=== PATIENT | male | born 1945 | race Caucasian/White ===

== ENCOUNTER → 2017-06-23 | Outpatient (CLI) | payer OTHER ==
--- NOTE | 2017-06-23 10:45 | PCVCIMAG ---
EXAM: BILATERAL CAROTID DUPLEX INDICATION: Carotid Occlusive Disease. FINDINGS: Doppler Measurements (centimeters per second): RIGHT: Peak CCA-93, Peak ECA-220, Diastolic ICA-75, Peak ICA-308, ICA/CCA Ratio-3.3. LEFT: Peak CCA-120, Peak ECA-220, Diastolic ICA-65, Peak ICA-286, ICA/CCA Ratio-2.4. RIGHT CAROTID: The carotid bulb has severe plaque. The proximal internal carotid artery shows 80-90% stenosis. The common carotid artery shows no significant stenosis. The external carotid artery shows 70% stenosis. LEFT CAROTID: The carotid bulb has moderately severe plaque. The proximal internal carotid artery shows 70-80% stenosis. The common carotid artery shows no significant stenosis. The external carotid artery shows 70% stenosis. Antegrade flow in both vertebral arteries. IMPRESSION: 80-90% stenosis of the right internal carotid artery with severe plaque. 70-80% stenosis of the left internal carotid artery with moderately severe plaque. Bilateral internal carotid artery stenoses have increased in severity since July 2016 study. LOC:[id number]
== END | disposition home or self-care (01) ==
LOC: PCVCIMAG 08:23
PROVIDERS: ATTEND Internal Medicine Cardiovascular Disease
DX: I65.23 Occlusion and stenosis of bilateral carotid arteries (principal); I25.10 Atherosclerotic heart disease of native coronary artery without angina pectoris
CPT/HCPCS: 93880

== ENCOUNTER → 2017-07-06 | Outpatient (CLI) | payer OTHER ==
[~2017-07-06] MED LIST: DIAZEPAM 10 MG TABLET. ONE; IOHEXOL 300 MG/ML 100ML VIAL. ONE; IOHEXOL 350 MG/ML 100 ML VIAL. ONE; IOHEXOL 350 MG/ML 50 ML VIAL. ONE; IV NORMAL SALINE 1000ML BAG 1,000 ML ONE; LIDOCAINE 1% Multi-Dose 20 ML VIAL. ONE; LIDOCAINE 1%/EPI 1:100,000 20 ML VIAL. ONE; MIDAZOLAM HCL/PF 2 MG/2 ML VIAL. ONE; fentaNYL PF VIAL 100 MCG/2 ML VIAL ONE
--- NOTE | 2017-07-06 16:42 | PCVCINTER ---
EXAM: 1 CERVICOCEPHALIC ARCH AORTOGRAM 2 BILATERAL CAROTID ANGIOGRAPHY 3 BILATERAL VERTEBROBASILAR ANGIOGRAPHY 4 BILATERAL RENAL ANGIOGRAPHY 5 BILATERAL ILIOFEMORAL ANGIOGRAPHY INDICATION: Carotid occlusive disease. Left subclavian steal. Hypertension. Renal atherosclerosis. Leg pain. PROCEDURE: Procedure and risks of the procedures listed above were discussed with the patient and consent obtained. Risks including but not limited to bleeding, infection, stroke, vascular injury, neurologic injury, embolization, allergic reactions, and contrast-induced nephropathy requiring dialysis were discussed as appropriate and consent obtained. Patient was placed on the angiography table. IV conscious sedation was utilized with appropriate monitoring from 12:00 PM through 1:15 PM. The right groin was prepped and draped in the normal sterile fashion. Ultrasound was used to interrogate the right groin and demonstrate the right common femoral artery. An ultrasound image was saved. Under ultrasound guidance a 21 gauge needle was used to gain access into the right common femoral artery and a 6F vascular sheath was placed. Dr. Rdz joined the procedure and he then performed coronary angiography. Please see his separate dictation for full details. I then placed a diagnostic catheter into the ascending aorta and cervicocephalic aortic arch angiogram performed. Catheter was placed into the suprarenal abdominal aorta and abdominal aortic angiogram performed. Catheter was placed into the right common carotid artery and right common carotid angiogram performed. Catheter was placed into the left common carotid artery and left common carotid angiogram performed. Catheter was placed into the left subclavian artery and left vertebro-basilar angiogram performed. Catheter was placed into the right subclavian artery and right vertebrobasilar angiogram performed. Catheter was placed into the right renal artery and right renal angiogram performed. Catheter was placed into the left renal artery and left renal angiogram performed. Catheters and wires were removed and hemostasis obtained using the FISH device. No immediate complications. FINDINGS: Cervicocephalic arch aortogram: The origins of the great vessels show satisfactory patency. Cranial directed flow in both vertebral arteries is noted. Right common carotid angiogram: This injection fills the right anterior and middle cerebral distributions which are unremarkable. The cavernous carotid artery is patent. Extensive calcific plaque from the origin of the cervical internal carotid artery to approximately the C1-C2 level of the cervical internal carotid artery results in areas of 80-90% stenosis. This plaque also causes 70% stenosis of the distal most common carotid artery. The external carotid artery is patent. Left common carotid angiogram: This injection fills the right and left anterior cerebral and the left middle cerebral distributions all of which show satisfactory patency. The cavernous carotid artery is unremarkable. Large eccentric plaque in the junction of the common carotid and internal carotid artery causes 65% stenosis at the origin of the internal carotid artery. Internal carotid artery otherwise patent. The distal common carotid artery shows nearly 50% stenosis. The external carotid artery is patent. Right vertebrobasilar angiogram: The right vertebral artery is patent as is the basilar artery and both posterior cerebral arteries. Left vertebrobasilar angiogram: 60% stenosis upper left vertebral artery. Cervical left vertebral artery is patent. The basilar artery is patent as are both posterior cerebral arteries. Right renal angiogram: Moderate plaque at the origin of the renal artery causing mild stenosis which is not flow-limiting. Left renal angiogram: Mild plaque proximal vessel does not cause significant stenosis. Bilateral iliofemoral angiogram: The infrarenal abdominal aorta shows moderate plaque without significant stenosis. The right and left common iliac arteries are patent. Both internal iliac arteries are patent. The right and left external iliac arteries are patent. The right and left common femoral and profunda femoral arteries are patent. Visualized portions of the upper superficial femoral arteries are patent bilaterally. IMPRESSION: Extensive calcific plaque throughout the proximal 4-5 cm of the right internal carotid artery extending superiorly to the C1-C2 level results in areas of 80-90% stenosis. 65% stenosis at the origin of the left internal carotid artery. 60% stenosis upper left vertebral artery. Case was reviewed with Dr. Silverio Schumacher of neurosurgery. Giving the extensive calcific plaque and the superior extent of the plaque surgical endarterectomy would be of higher risk. Since the patient is asymptomatic medical therapy including aggressive antiplatelet therapy is recommended. LOC:[id number]
--- NOTE | 2017-07-07 16:50 | PCVCINTER ---
APPROVED REPORT Patient Details Patient Status: Out-Patient Room #: 3 The patient is a 72 year-old Male Event Personnel Jessica Almeida RT(R), Michelle Graves RT(R)(), Fany Grissom RN Risk Factors Arterial HypertensionDysplipidemia (Type: 1), Peripheral Vascular Disease, Hypercholesterolemia, Diabetes (Control: Insulin)Last Creatanine 1.6Tobacco History (Former) Previous Procedures/Diagnoses Previous CABGPrevious PCI, Previous Femoral Procedure Procedure Narrative The patient was brought electively to the Cardiac Catheterization Laboratory and was prepped and draped in a sterile manner. The right femoral was infiltrated with 1% Lidocaine subcutaneous anesthesia. A 6fr sheath was inserted into the right femoral artery. Coronary angiography was performed using coronary diagnostic catheters. The right coronary system was accessed and visualized with a JR4 Diagnostic catheter. The left coronary system was accessed and visualized with a JL4 Diagnostic catheter. The left ventricle was accessed and visualized with a Pigtail Diagnostic catheter. Left ventriculogram was performed in DAIGLE projection. Closure device was deployed with a 6 Fr Fish. Hemostasis was obtained with manual pressure following sheath removal without any complications. The patient tolerated the procedure well and there were no complications associated with the procedure. There was no hematoma. Hemodynamics The aortic pressure is 132/63 mmHg with a mean of 89 mmHg. The left ventricular pressure is 122/9 mmHg with a mean of 21 mmHg. Conclusion #1 normal left ventricular size with mild anterolateral wall hypokinesis EF 50% range #2 total occlusion of left [place] system #3 NIEVES was injected and appears to be atrretic and essentially nonfunctional. #4 SVG to OM system the graft is well preserved at the distal anastomosis appears to have an 80-90% eccentric lesion filling a small moderate size OM bifurcating system which is well preserved this lesion has progressed #5 [place] right coronary artery occluded #6 there is a graft which may have been a taken down NIEVES to the LAD which is intact with a 50% anastomotic lesion filling and LAD which extends to the apex and provides some inferior wall filling #7 SVG to the distal right PDA is intact with a 40-50% distal lesion filling a diffusely disease PDA and SANDRA. Continue aggressive risk factor modification will recommend intervention to the SVG to OM system. No lifting for 48 hours no line tub Jacuzzi or Watson for a week. We'll initiate Plavix therapy in addition to aspirin currently. Arrange for intervention in the next one to 2 weeks to the SVG to OM
== END | disposition home or self-care (01) ==
LOC: PCVCINTER 09:06
PROVIDERS: ATTEND Internal Medicine Cardiovascular Disease
DX: I25.10 Atherosclerotic heart disease of native coronary artery without angina pectoris (principal); E78.00 Pure hypercholesterolemia, unspecified; E78.5 Hyperlipidemia, unspecified; I73.9 Peripheral vascular disease, unspecified; E11.9 Type 2 diabetes mellitus without complications; I65.29 Occlusion and stenosis of unspecified carotid artery; I10 Essential (primary) hypertension; I70.1 Atherosclerosis of renal artery; G45.8 Other transient cerebral ischemic attacks and related syndromes
CPT/HCPCS: 36223; 36225; 36252; 75630; 76937; 93459; 99152; 99153; C1751; C1760; C1769; C1894; J1644; J2250; J3010; J3490; J7030; Q9967; 93458

== ENCOUNTER → 2017-10-19 | Outpatient (CLI) | payer OTHER | END | disposition home or self-care (01) | LOC: PCVCIMAG 14:48 | DX: I65.23 Occlusion and stenosis of bilateral carotid arteries (principal) | CPT/HCPCS: 93880 ==

== ENCOUNTER → 2018-01-28 | Outpatient (CLI) | payer OTHER ==
[~2018-01-28] MED LIST changes: -DIAZEPAM 10 MG TABLET. ONE; -IOHEXOL 300 MG/ML 100ML VIAL. ONE; -IOHEXOL 350 MG/ML 100 ML VIAL. ONE; -IOHEXOL 350 MG/ML 50 ML VIAL. ONE; -IV NORMAL SALINE 1000ML BAG 1,000 ML ONE; -LIDOCAINE 1% Multi-Dose 20 ML VIAL. ONE; -LIDOCAINE 1%/EPI 1:100,000 20 ML VIAL. ONE; -MIDAZOLAM HCL/PF 2 MG/2 ML VIAL. ONE; +REGADENOSON 0.4 MG/5 ML DISP.SYRIN. IV; -fentaNYL PF VIAL 100 MCG/2 ML VIAL ONE
== END | disposition home or self-care (01) ==
LOC: PCVCIMAG 10:18
DX: I25.10 Atherosclerotic heart disease of native coronary artery without angina pectoris (principal); I12.9 Hypertensive chronic kidney disease with stage 1 through stage 4 chronic kidney disease, or unspecified chronic kidney disease; E78.5 Hyperlipidemia, unspecified; N18.9 Chronic kidney disease, unspecified; I48.91 Unspecified atrial fibrillation; Z87.891 Personal history of nicotine dependence
CPT/HCPCS: 78452; 93017; A9500; J2785

== ENCOUNTER → 2018-04-28 | Outpatient (CLI) | payer OTHER ==
--- NOTE | 2018-04-28 18:05 | PCVCIMAG ---
EXAM: BILATERAL CAROTID DUPLEX INDICATION: Carotid Occlusive Disease. FINDINGS: Doppler Measurements (centimeters per second): RIGHT: Peak CCA-81, Peak ECA-195, Diastolic ICA-96, Peak ICA-332, ICA/CCA Ratio-4.1. LEFT: Peak CCA-135, Peak ECA-234, Diastolic ICA-76, Peak ICA-317, ICA/CCA Ratio-2.3. RIGHT CAROTID: The carotid bulb has severe plaque. The proximal internal carotid artery shows 80-90% stenosis. The common carotid artery shows no significant stenosis. The external carotid artery shows 60% stenosis. LEFT CAROTID: The carotid bulb has moderately severe plaque. The proximal internal carotid artery shows 70% stenosis. The common carotid artery shows no significant stenosis. The external carotid artery shows 60% stenosis. Antegrade flow in both vertebral arteries. IMPRESSION: 80-90% stenosis of the right internal carotid artery with severe plaque. 70% stenosis of the left internal carotid artery with moderately severe plaque. No change since October 2017 study. The right carotid stenosis has previously been shown to not be readily amenable to surgical endarterectomy in this asymptomatic patient. LOC:[id number]
== END | disposition home or self-care (01) ==
LOC: PCVCIMAG 14:40
PROVIDERS: ATTEND Internal Medicine Cardiovascular Disease
DX: I65.23 Occlusion and stenosis of bilateral carotid arteries (principal); R09.89 Other specified symptoms and signs involving the circulatory and respiratory systems
CPT/HCPCS: 93880

== ENCOUNTER → 2018-07-15 | Outpatient (CLI) | payer OTHER ==
[~2018-07-15] MED LIST changes: +BENZOCAINE ONE 20% MUCOSAL SPRAY.; +FUROSEMIDE 40 MG/4 ML VIAL. ONE; +IV NORMAL SALINE 500ML BAG 500 ML ONE; +MIDAZOLAM HCL/PF 2 MG/2 ML VIAL. ONE; -REGADENOSON 0.4 MG/5 ML DISP.SYRIN. IV; +fentaNYL PF VIAL 100 MCG/2 ML VIAL ONE
--- NOTE | 2018-07-15 10:45 | PCVCIMAG ---
APPROVED REPORT Study performed: 07/15/2018 08:58:45 EXAM: Transesophageal Echocardiogram with Cardioversion Patient Location: [facility] Room #: 1 Status: routine BSA: 2.27 HR: 110 bpmBP: 124/83 mmHg Rhythm: Atrial Fibrillation Other Information Study Quality: Good Indications Atrial Fibrillation Echo Enhancing Agent Indication: Rule out Shunt Agent(s) / Amount(s) Used: Agitated Saline 10 cc Comments: Negative contrast study for shunt flow. Procedure After obtaining informed consent, patient underwent transesophageal echo in the [employer]. Type of Sedation : Conscious Sedation Sedation was administered by Jaclyn Hidalgo RN. Sedation start time: 9:30 Case end Time: 10:00 Sedation was achieved intravenously with: Versed (2mg) Fentanyl (50mcg) Transesophageal probe was inserted and advanced into esophagus without difficulty by Arsen Fuller MD. Echo enhancement indication: R/O Septal defect. Echo enhancement agent administered: Agitated Saline The JOHN was performed without complications. Synchronized Cardioversion attempted: Successful Synchronized Cardioversion acheived with 100 Joules after one attempt(s). Rhythm following Synchronized Cardioversion: Normal Sinus Rhythm Throughout the procedure, the blood pressure, pulse oximetry, cardiac rhythm, and rate were monitored. The patient tolerated the procedure without adverse effects. Recovery from conscious sedation was uneventful and vital signs were stable. Left Ventricle The left ventricle is normal size. Global severe hypokinesis . There is normal left ventricular wall thickness. Left ventricular systolic function is moderate to severely decreased. LVEF is 30%. This study is not technically sufficient to allow evaluation of the LV diastolic function. Right Ventricle The right ventricle is normal size. The right ventricular systolic function is normal. Atria Left atrium is severely dilated. No thrombus is visualized in the left atrium or appendage. No shunting by contrast bubble injection Right atrium is severely dilated. Aortic Valve The aortic valve is normal in structure. No aortic regurgitation is present. There is no aortic valvular stenosis. Mitral Valve Mild myxomatous changes with prolapse Moderate mitral regurgitation. Tricuspid Valve The tricuspid valve is normal in structure. Mild tricuspid regurgitation. Pulmonic Valve The pulmonary valve is normal in structure. There is no pulmonic valvular regurgitation. Great Vessels The aortic root is normal in size. The ascending aorta is normal in size. Mild scattered atherosclerosis IVC is not visualized. Pericardium There is no pericardial effusion. There is no pleural effusion. <Conclusion> Left ventricular systolic function is moderate to severely decreased. LVEF is 30%. Both atria are severely dilated. No thrombus is visualized in the left atrium or appendage. No shunting by contrast bubble injection The aortic valve is normal in structure. No aortic regurgitation or stenosis Mild myxomatous changes with prolapse. Moderate mitral regurgitation. There is no pericardial effusion.
== END | disposition home or self-care (01) ==
LOC: PCVCINTER 08:46
PROVIDERS: ATTEND Internal Medicine
DX: I08.1 Rheumatic disorders of both mitral and tricuspid valves (principal); I25.5 Ischemic cardiomyopathy; I48.0 Paroxysmal atrial fibrillation; I25.10 Atherosclerotic heart disease of native coronary artery without angina pectoris; Z95.1 Presence of aortocoronary bypass graft; K21.9 Gastro-esophageal reflux disease without esophagitis; I13.0 Hypertensive heart and chronic kidney disease with heart failure and stage 1 through stage 4 chronic kidney disease, or unspecified chronic kidney disease; E11.22 Type 2 diabetes mellitus with diabetic chronic kidney disease; N18.3 Chronic kidney disease, stage 3 (moderate); I50.9 Heart failure, unspecified; E78.00 Pure hypercholesterolemia, unspecified; Z98.890 Other specified postprocedural states; Z82.49 Family history of ischemic heart disease and other diseases of the circulatory system; Z82.3 Family history of stroke; Z87.891 Personal history of nicotine dependence; Z79.899 Other long term (current) drug therapy; Z79.84 Long term (current) use of oral hypoglycemic drugs
CPT/HCPCS: 92960; 93312; 99152; 99153; J1940; J2250; J3010; J7040; 93325

== ENCOUNTER → 2018-08-19 | Outpatient (CLI) | payer OTHER | END | disposition home or self-care (01) | LOC: PCVCCLINIC 15:20 | PROVIDERS: ATTEND Internal Medicine Cardiovascular Disease | DX: I48.0 Paroxysmal atrial fibrillation (principal); R94.31 Abnormal electrocardiogram [ECG] [EKG]; I42.9 Cardiomyopathy, unspecified; I25.10 Atherosclerotic heart disease of native coronary artery without angina pectoris; I10 Essential (primary) hypertension; E11.9 Type 2 diabetes mellitus without complications; E78.00 Pure hypercholesterolemia, unspecified; Z88.8 Allergy status to other drugs, medicaments and biological substances; Z87.891 Personal history of nicotine dependence; Z79.4 Long term (current) use of insulin | CPT/HCPCS: 93005; G0463 ==

== ENCOUNTER → 2018-10-25 | Outpatient (CLI) | payer OTHER ==
--- NOTE | 2018-10-25 10:59 | PCVCIMAG ---
APPROVED REPORT Study performed: 10/25/2018 08:38:47 EXAM: Comprehensive 2D, Doppler, and color-flow Echocardiogram Patient Location: Echo lab Status: routine BSA: 2.17 HR: 63 bpmBP: 110/60 mmHg Rhythm: Atrial Fibrillation Other Information Study Quality: Adequate Risk Factors: Cardiac Risk Factors: HTN Indications Diabetes Atrial Fibrillation ischemic cardiomyopathy, CABG 2D Dimensions IVSd: 10.97 (7-11mm) LVDd: 56.34 mm PWd: 10.40 (7-11mm)Ascending Ao: 32.16 (22-36mm) LVDs: 42.19 (25-40mm) Left Atrium: 54.19 (27-40mm) Aortic Root: 36.36 mm LV Single Plane 4CH: 38.17 % LV Single Plane 2CH: 40.26 % Biplane EF: 39.9 % Volumes Left Atrial Volume (Systole) Single Plane 4CH: 96.60 mLSingle Plane 2CH: 108.98 mL LA ESV Index: 51.00 mL/m2 Aortic Valve AoV Peak Drew.: 1.38 m/s AO Peak Gr.: 7.61 mmHgLVOT Max P.68 mmHg LVOT Max V: 0.96 m/s Pulmonary Valve PV Peak Drew.: 0.85 m/sPV Peak Gr.: 2.93 mmHg Tricuspid Valve TR Peak Drew.: 3.01 m/s TR Peak Gr.: 36.58 mmHg Left Ventricle Left ventricle is at the upper limits of normal. There is normal LV segmental wall motion. There is normal left ventricular wall thickness. Left ventricular systolic function is moderately decreased.worse mid distal septum LVEF is 35-40%. This study is not technically sufficient to allow evaluation of the LV diastolic function due to atrial fibrillation. Right Ventricle The right ventricle is normal size. The right ventricular systolic function is normal. Atria Left atrium is severely dilated. Right atrium is severely dilated. Aortic Valve The aortic valve is normal in structure. No aortic regurgitation is present. There is no aortic valvular stenosis. Mitral Valve The mitral valve is normal in structure. Moderate mitral regurgitation. No evidence of mitral valve stenosis. Tricuspid Valve The tricuspid valve is normal in structure. Mild to moderate tricuspid regurgitation with PAP of 47 mmHg. Pulmonic Valve The pulmonary valve is normal in structure. Trace pulmonic regurgitation. Great Vessels The aortic root is normal in size. IVC is normal in size and collapses <50% with inspiration. Pericardium There is no pericardial effusion. There is no pleural effusion. <Conclusion> Left ventricle is at the upper limits of normal. Left ventricular systolic function is moderately decreased. Left ventricular systolic function is moderately decreased.worse mid distal septum LVEF is 35-40%. This study is not technically sufficient to allow evaluation of the LV diastolic function due to atrial fibrillation. The right ventricle is normal size. Left atrium is severely dilated. Right atrium is severely dilated. The aortic valve is normal in structure. Moderate mitral regurgitation. Mild to moderate tricuspid regurgitation with PAP of 47 mmHg. The aortic root is normal in size. There is no pericardial effusion.
== END | disposition home or self-care (01) ==
LOC: PCVCIMAG 08:53
PROVIDERS: ATTEND Internal Medicine Cardiovascular Disease
DX: I08.1 Rheumatic disorders of both mitral and tricuspid valves (principal); I48.91 Unspecified atrial fibrillation; E11.9 Type 2 diabetes mellitus without complications; I25.5 Ischemic cardiomyopathy; Z95.1 Presence of aortocoronary bypass graft
CPT/HCPCS: 93306

== ENCOUNTER → 2019-02-15 | Outpatient (CLI) | payer OTHER ==
[~2019-02-15] MED LIST changes: -BENZOCAINE ONE 20% MUCOSAL SPRAY.; -FUROSEMIDE 40 MG/4 ML VIAL. ONE; -IV NORMAL SALINE 500ML BAG 500 ML ONE; -MIDAZOLAM HCL/PF 2 MG/2 ML VIAL. ONE; +REGADENOSON 0.4 MG/5 ML DISP.SYRIN. IV ONE; -fentaNYL PF VIAL 100 MCG/2 ML VIAL ONE
--- NOTE | 2019-02-15 09:51 | PCVCIMAG ---
APPROVED REPORT Study performed: 02/15/2019 07:59:57 EXAM: Comprehensive 2D, Doppler, and color-flow Echocardiogram Patient Location: Echo lab Room #: 2Status: routine BSA: 2.22 HR: 100 bpmBP: 118/62 mmHg Rhythm: Atrial Fibrillation Other Information Study Quality: Fair Risk Factors: Cardiac Risk Factors: HTN, DM, Hyperlipidemia, FHX of CAD Indications Diabetes Atrial Fibrillation CAD Cardiomyopathy Chest Pain Hypertension/HDD S/P CABG X 2SURGERIES 2D Dimensions IVSd: 10.67 (7-11mm)LVOT Diam: 19.15 (18-24mm) LVDd: 52.72 mm PWd: 9.28 (7-11mm)Ascending Ao: 22.29 (22-36mm) LVDs: 38.15 (25-40mm) Left Atrium: 34.29 (27-40mm) Aortic Root: 20.52 mm LV Single Plane 4CH: 38.26 % LV Single Plane 2CH: 30.26 % Biplane EF: 33.3 % Volumes Left Atrial Volume (Systole) Single Plane 4CH: 79.58 mLSingle Plane 2CH: 72.85 mL Aortic Valve AoV Peak Drew.: 1.47 m/s AO Peak Gr.: 10.29 mmHgLVOT Max P.06 mmHg LVOT Max V: 0.82 m/s [place] Vmax: 1.60 cm2 Mitral Valve E/A Ratio: 23.4 MV E Max Drew.: 1.64 m/s MV A Drew.: 0.07 m/s MV PHT: 53.01 ms MVA (PHT): 4.15 cm2 TDI E/Lateral E': 18.22E/Medial E': 32.80 Medial E' Drew.: 0.05 m/s Lateral E' Drew.: 0.09 m/s Pulmonary Valve PV Peak Drew.: 0.89 m/sPV Peak Gr.: 3.17 mmHg Tricuspid Valve TR Peak Drew.: 2.85 m/s TR Peak Gr.: 32.40 mmHg TV Vmax: 0.57 m/sPA Pressure: 39.00 mmHg Left Ventricle The left ventricle is normal size. Paradoxical septal motion consistent with post-operative state. There is global moderate hypokinesis of the left ventricle. There is normal left ventricular wall thickness. Left ventricular systolic function is moderately decreased. LVEF is 30-35%. This study is not technically sufficient to allow evaluation of the LV diastolic function due to atrial fibrillation. Right Ventricle The right ventricle is normal size. The right ventricular systolic function is normal. Atria Left atrium is mildly dilated. The right atrium size is normal. Aortic Valve Aortic valve is trileaflet. Aortic valve leaflets are mildly sclerotic with normal leaflet excursion. No aortic regurgitation is present. There is no aortic valvular stenosis. Mitral Valve The mitral valve is normal in structure. Mild mitral regurgitation. No evidence of mitral valve stenosis. Tricuspid Valve The tricuspid valve is normal in structure. Trace to mild tricuspid regurgitation with a PA pressure of 39 mmHg. Pulmonic Valve The pulmonary valve is normal in structure. There is no pulmonic valvular regurgitation. Great Vessels The aortic root is normal in size. The ascending aorta is normal in size. Aortic arch is normal in caliber. IVC is normal in size and collapses >50% with inspiration. Pericardium There is no pericardial effusion. There is no pleural effusion. <Conclusion> The left ventricle is normal size. Paradoxical septal motion consistent with post-operative state. There is global moderate hypokinesis of the left ventricle. LVEF is 30-35%. This study is not technically sufficient to allow evaluation of the LV diastolic function due to atrial fibrillation. The right ventricle is normal size. Left atrium is mildly dilated. Aortic valve is trileaflet. Aortic valve leaflets are mildly sclerotic with normal leaflet excursion. Mild mitral regurgitation. Trace to mild tricuspid regurgitation with a PA pressure of 39 mmHg. The aortic root is normal in size. There is no pericardial effusion.
--- NOTE | 2019-02-15 13:45 | PCVCIMAG ---
APPROVED REPORT Imaging Protocol: Rest Tc-99m/Stress Tc-99m 1 day Study performed: 02/15/2019 09:03:45 Indication: CAD, Chest pain, Dyspnea Patient Location: Out-Patient Stress Nurse: Marci Medina RN, JUS Perez Tech:Jonel DamicoKAYLIE Ht: 5 ft 11 in Wt: 225 lbs BSA: 2.22 m2 HR: 75 bpm BP: 102/64 mmHg BMI: 31.3 Rhythm: Afib, ST and T wave Abnormality Medical History Medical History: Age, Hyperlipidemia, HTN, Afib, CHF, Obesity, CAD, Dm Insulin, Former Smoker Medications: Eliquis, Cardizem, Zetia, Jardiance, Levemir, Cozaar, Metformin, Toprol XL, Crestor, Protonix, Demedex Allergies: Trulicity Previous Cardiac Procedures: CABG, PCI Exercise History: Sedentary Meds Held (24 hrs): Toprol XL Resting Data Rest SPECT myocardial perfusion imaging was performed in supine position 45 minutes following the intravenous injection of 12 mCi of Tc-99m Sestamibi. Time of rest injection: 0840 Date: 02/15/2019 Administration Route: IV Administration Site: Right AC Pharmacologic Stress Pharmacologic stress test was performed by injecting Regadenoson 0.4 mg IV push over 10-15 seconds immediately followed by the intravenous injection of 32.4 mCi of Tc-99m Sestamibi. Time of stress injection: 1000 Date: 02/15/2019 Administration Route: IV Administration Site: Right AC Gated Stress SPECT was performed 45 minutes after stress injection. The images were gated to evaluate regional wall motion and calculate left ventricular ejection fraction. Stress Test Details Stress Test: Pharmacologic stress testing performed using 0.4 mg of regadenoson per 5 mL given IV over 10 seconds. Reason for pharmacologic stress test: Lightheaded, Afib. HRMax Heart Rate (APMHR): 149 bpm Resting HR: 75 bpmTarget HR (85% APMHR): 126 bpm Max HR Achieved: 103 bpm % of APMHR: 69 Recovery HR: 100 bpm BP Resting BP: 102/64 mmHg Max BP: 84/50 mmHg Recovery BP: 96/50 mmHg ECG Resting ECG: Atrial Fibrillation, nonspecific ST-T abnormalities Stress ECG: Atrial Fibrillation, nonspecific ST-T abnormalities Arrhythmia: Afib Recovery ECG: Atrial Fibrillation, nonspecific ST-T abnormalities Clinical Reason for Termination: Completed protocol Stress Symptoms: Dyspnea, Lightheaded Symptoms resolved with caffeine. Stress ECG Conclusion ECG: Non-ischemic Study Data Post stress, the left ventricular ejection was 49%.. SSS: 22 SRS: 19 SDS: 4 TID = 0.30. Perfusion Large sized area of moderate reversible ischemia involving the anterior/lateral left ventricle consistent with a left anterior descending distribution. Nuclear Conclusion Large sized area of moderate reversible ischemia involving the anterior/lateral left ventricle consistent with a left anterior descending distribution. Post stress, the left ventricular ejection was 49%.. No change since prior study dated January 2018. Interpreted by: Antonio Osman MD Electronically Approved: 02/15/2019 11:44:40 <Conclusion> ECG: Non-ischemic
--- NOTE | 2019-02-15 16:13 | PCVCIMAG ---
APPROVED REPORT Laterality: Bilateral Indications Stenosis Doppler Spectral Velocity Analysis PSV / EDVPSV / EDV ECA (R) 169 / 46 cm/sECA (L) 126 / 12 cm/s dICA (R) 140 / 30 cm/sdICA (L) 83 / 29 cm/s Silver (R) 141 / 50 cm/smICA (L) 87 / 25 cm/s pICA (R) 254 / 67 cm/spICA (L) 236 / 58 cm/s Bulb (R) 92 / 30 cm/sBulb (L) 134 / 34 cm/s dCCA (R) 77 / 23 cm/sdCCA (L) 107 / 26 cm/s mCCA (R) 74 / 22 cm/smCCA (L) 99 / 26 cm/s Vert (R) 40 / 16 cm/sVert (L) 33 / 8 cm/s ICA/CCA 3.30 ICA/CCA 2.21 Findings The right carotid bulb has severe calcified plaque. The right proximal internal carotid artery shows 70-80% stenosis. The right common carotid artery shows <40% stenosis. The right external carotid artery shows >50% stenosis. The left carotid bulb has severe calcified plaque. The left proximal internal carotid artery shows 70-80% stenosis. The left common carotid artery shows <40% stenosis. The left external carotid artery shows no significant stenosis. Conclusion 1. Right internal carotid artery stenosis (70-80%). 2. Left internal carotid artery stenosis (70-80%). 3. Bilateral common carotid artery stenoses (<40%) 4. Antegrade vertebral flow Similar to a study dated October 2017
== END | disposition home or self-care (01) ==
LOC: PCVCIMAG 07:50
PROVIDERS: ATTEND Internal Medicine Cardiovascular Disease
DX: I65.23 Occlusion and stenosis of bilateral carotid arteries (principal); R07.9 Chest pain, unspecified; I48.91 Unspecified atrial fibrillation; E11.9 Type 2 diabetes mellitus without complications; I42.9 Cardiomyopathy, unspecified; I10 Essential (primary) hypertension; E78.5 Hyperlipidemia, unspecified; I77.9 Disorder of arteries and arterioles, unspecified; Z95.1 Presence of aortocoronary bypass graft
CPT/HCPCS: 78452; 93017; 93306; 93880; A9500; J2785

== ENCOUNTER → 2019-05-31 | Outpatient (CLI) | payer OTHER | END | disposition home or self-care (01) | LOC: PCVCCLINIC 11:30 | PROVIDERS: ATTEND Internal Medicine Cardiovascular Disease | DX: I48.0 Paroxysmal atrial fibrillation (principal); I25.10 Atherosclerotic heart disease of native coronary artery without angina pectoris; E78.00 Pure hypercholesterolemia, unspecified; I70.1 Atherosclerosis of renal artery; I46.9 Cardiac arrest, cause unspecified; I65.23 Occlusion and stenosis of bilateral carotid arteries; D68.59 Other primary thrombophilia; R06.02 Shortness of breath; M25.551 Pain in right hip; M25.552 Pain in left hip; E11.9 Type 2 diabetes mellitus without complications; I42.9 Cardiomyopathy, unspecified; Z87.891 Personal history of nicotine dependence; Z95.1 Presence of aortocoronary bypass graft; Z86.79 Personal history of other diseases of the circulatory system; Z79.4 Long term (current) use of insulin; Z88.8 Allergy status to other drugs, medicaments and biological substances; Z79.899 Other long term (current) drug therapy | CPT/HCPCS: 36415; 80061; 93005; G0463 ==

== ENCOUNTER → 2019-06-08 | Outpatient (CLI) | payer OTHER ==
--- NOTE | 2019-06-08 18:45 | PCVCIMAG ---
EXAM: AORTOILIAC DUPLEX INDICATION: Peripheral arterial disease FINDINGS: AORTA: Suprarenal aorta measures maximum diameter of 2.6 cm. There is not a fusiform infrarenal aortic aneurysm. The infrarenal aorta measures maximum diameter of 2.0 cm. No aortic stenosis. RIGHT COMMON ILIAC ARTERY: Maximum diameter is 1.4 cm. Mild stenosis mid vessel. RIGHT EXTERNAL ILIAC ARTERY: No significant stenosis. LEFT COMMON ILIAC ARTERY: Maximum diameter is 1.4 cm. No significant stenosis. LEFT EXTERNAL ILIAC ARTERY: 60% stenosis proximal vessel. IMPRESSION: No abdominal aortic aneurysm. Mild stenosis mid right common iliac artery. 60% stenosis proximal left external iliac artery. LOC:[place] [id number]
--- NOTE | 2019-06-08 18:47 | PCVCIMAG ---
EXAM: BILATERAL LOWER EXTREMITY ARTERIAL DUPLEX INDICATION: Peripheral Arterial Disease. Leg pain. FINDINGS: Right Leg: Satisfactory arterial waveforms throughout the common/profunda/superficial femoral, popliteal, anterior tibial, peroneal, and posterior tibial arteries. No flow limiting stenosis seen. Left Leg: Common femoral profunda femoral arteries are patent. 50% stenosis distal [place] superficial femoral artery. Popliteal artery is patent. The anterior tibial, peroneal, and posterior tibial arteries are patent. IMPRESSION: No flow limiting stenosis in the right lower extremity. 50% stenosis distal [place] left superficial femoral artery. Otherwise no flow limiting stenosis in the left lower extremity. LOC:[id number]
== END | disposition home or self-care (01) ==
LOC: PCVCIMAG 13:14
PROVIDERS: ATTEND Internal Medicine Cardiovascular Disease
DX: E11.51 Type 2 diabetes mellitus with diabetic peripheral angiopathy without gangrene (principal); M25.552 Pain in left hip; M25.551 Pain in right hip; M79.604 Pain in right leg; M79.605 Pain in left leg; E78.5 Hyperlipidemia, unspecified; Z87.891 Personal history of nicotine dependence; Z88.8 Allergy status to other drugs, medicaments and biological substances
CPT/HCPCS: 93925; 93978